=== PATIENT | female | born 1950 | race Caucasian/White ===

== ENCOUNTER 2018-02-13 00:05 | Outpatient (CLI) | payer MEDICARE, BC, SELFPAY ==
--- NOTE | 2018-02-13 14:00 | DI.US_ITS ---
SYMPTOMS/DIAGNOSIS: MULTINODULAR GOITER, E04.2 THYROID ULTRASOUND: The right thyroid lobe measures 5.6 x 3.2 x 2.0 cm. An upper pole cyst measures 9.6 x 9.8 x 8.7 cm. There is a 3.5 x 2.9 x 2.1 cm avascular heterogeneous well-circumscribed ovoid nodule in the mid portion of the right thyroid lobe. The isthmus is unremarkable, measuring 4.4 mm in diameter. The left thyroid lobe measures 5.6 x 1.9 x 2.2 cm. There is a heterogeneous avascular mass with mixed echogenicity measuring 1.4 x 1.4 x 1.3 cm in the upper pole. In addition, in the mid pole, there is a 1.3 x 1.3 x 1.0 cm avascular cystic mass with calcification. In the lower pole, there is a 1.6 x 1.6 x 1.0 cm avascular heterogeneous area of nodularity. SUMMARY: There are findings consistent with a multinodular goiter.
== END 2018-02-13 00:25 ==
PROVIDERS: PCP Family Medicine; Visit Provider Otolaryngology
DX: E04.2 Nontoxic multinodular goiter (principal)
CPT/HCPCS: 76536

== ENCOUNTER 2018-04-23 10:14 | Outpatient (CLI) | payer MEDICARE, SELFPAY ==
[2018-04-23 11:39] LABS: ALT 61 U/L (12-78); AST 43 U/L (15-37); Albumin 3.7 g/dL (3.4-5.0); Alkaline Phosphatase 80 U/L (46-116); Anion Gap 10.4 mmol/L (3-11); BUN 23 mg/dL (7-18); Bilirubin, Total 0.6 mg/dL (0.2-1.0); CO2 26.6 mmol/L (21.0-32.0); CREATININE 1.16 mg/dL (0.55-1.02); Calcium 9.7 mg/dL (8.5-10.1); Chloride 101 mmol/L (98-107); Cholesterol 176 mg/dL (50-200); Estimated GFR 46.89 (mL/min/1.73m2); Glucose 199 mg/dL (70-100); HDL Cholesterol 42 mg/dL (40-60); LDL CHOLESTEROL 111 mg/dL (<100); Potassium 4.1 mmol/L (3.5-5.1); Sodium 138 mmol/L (136-145); Total Protein 7.5 g/dL (6.4-8.2); Triglyceride 166 mg/dL (30-150)
[2018-04-23 11:52] LABS: COMMENT (LAB VIEW ONLY) 72.26 mg/dL; Microalb ug/mg Crea 12.7 ug/mg Cr
== END 2018-04-23 10:34 ==
PROVIDERS: PCP Family Medicine; Visit Provider Family Medicine
DX: E11.65 Type 2 diabetes mellitus with hyperglycemia (principal); I10 Essential (primary) hypertension
CPT/HCPCS: 80053; 80061; 83721; 82043; 82570; 83036

== ENCOUNTER 2018-10-23 13:44 | Outpatient (CLI) | payer MEDICARE, SELFPAY ==
[2018-10-23 14:42] LABS: Hemoglobin A1C 8.6 % (4.5-6.2)
== END 2018-10-23 14:04 ==
PROVIDERS: PCP Family Medicine; Visit Provider Family Medicine
DX: E11.65 Type 2 diabetes mellitus with hyperglycemia (principal); E11.8 Type 2 diabetes mellitus with unspecified complications
CPT/HCPCS: 36415; 83036

== ENCOUNTER 2019-03-02 11:47 | Outpatient (CLI) | payer MEDICARE, SELFPAY ==
[2019-03-02 13:19] LABS: ALT 48 U/L (14-59); AST 39 U/L (15-37); Albumin 3.9 g/dL (3.4-5.0); Alkaline Phosphatase 71 U/L (46-116); Anion Gap 10.9 mmol/L (3-11); BUN 16 mg/dL (7-18); Bilirubin, Total 0.6 mg/dL (0.2-1.0); CO2 28.1 mmol/L (21.0-32.0); CREATININE 0.91 mg/dL (0.55-1.02); Calcium 9.7 mg/dL (8.5-10.1); Chloride 100 mmol/L (98-107); Glucose 186 mg/dL (74-106); Sodium 139 mmol/L (136-145); Total Protein 7.4 g/dL (6.4-8.2)
[2019-03-02 14:03] LABS: Hemoglobin A1C 8.5 % (4.5-6.2)
== END 2019-03-02 12:07 ==
PROVIDERS: PCP Family Medicine; Visit Provider Family Medicine
DX: E11.9 Type 2 diabetes mellitus without complications (principal); I10 Essential (primary) hypertension
CPT/HCPCS: 36415; 80053; 83036

== ENCOUNTER 2019-05-28 13:05 | Outpatient (CLI) | payer MEDICARE, SELFPAY | END 2019-05-28 13:25 | PROVIDERS: PCP Family Medicine; Visit Provider Family Medicine | DX: E11.9 Type 2 diabetes mellitus without complications (principal) | CPT/HCPCS: 36415; 83036 ==

== ENCOUNTER 2020-02-05 09:24 | Outpatient (CLI) | payer MEDICARE, SELFPAY ==
[2020-02-09 23:15] LABS: Patient Race White; SARS-CoV-2 RNA Undetected (Undetected); SARS-CoV-2 Specimen Source Nasal
== END 2020-02-05 09:44 ==
PROVIDERS: PCP Family Medicine; Visit Provider Family Medicine
DX: Z20.828 Contact with and (suspected) exposure to other viral communicable diseases (principal)
CPT/HCPCS: U0003

== ENCOUNTER 2020-04-15 02:57 | Outpatient (CLI) | payer MEDICARE, SELFPAY ==
[2020-04-16 15:49] LABS: COVID-19 RT-PCR Result NEGATIVE (Negative)
== END 2020-04-15 03:17 ==
PROVIDERS: PCP Family Medicine; Visit Provider Family Medicine
DX: Z20.828 Contact with and (suspected) exposure to other viral communicable diseases (principal)
CPT/HCPCS: U0003

== ENCOUNTER 2020-04-29 08:58 | Outpatient (CLI) | payer MEDICARE, SELFPAY ==
[2020-05-01 10:30] LABS: COVID-19 RT-PCR Result NEGATIVE (Negative)
== END 2020-04-29 09:18 ==
PROVIDERS: PCP Family Medicine; Visit Provider Family Medicine
DX: Z20.822 Contact with and (suspected) exposure to COVID-19 (principal)
CPT/HCPCS: U0003

== ENCOUNTER 2020-05-13 01:33 | Outpatient (CLI) | payer MEDICARE, SELFPAY ==
[2020-05-14 14:39] LABS: COVID-19 RT-PCR UVMMC Result Negative (Negative)
== END 2020-05-13 01:34 | disposition home or self-care (01) ==
LOC: LBO 01:33
PROVIDERS: PCP Family Medicine; Visit Provider Family Medicine
DX: Z20.822 Contact with and (suspected) exposure to COVID-19 (principal)
CPT/HCPCS: U0003; U0005

== ENCOUNTER 2020-06-03 02:04 | Outpatient (CLI) | payer MEDICARE, SELFPAY ==
[2020-06-04 15:38] LABS: COVID-19 RT-PCR UVMMC Result Negative (Negative)
== END 2020-06-03 02:05 | disposition home or self-care (01) ==
LOC: LBO 02:04
PROVIDERS: PCP Family Medicine; Visit Provider Family Medicine
DX: Z20.822 Contact with and (suspected) exposure to COVID-19 (principal)
CPT/HCPCS: U0003; U0005

== ENCOUNTER 2020-06-17 02:10 | Outpatient (CLI) | payer MEDICARE, SELFPAY ==
[2020-06-18 18:06] LABS: COVID-19 RT-PCR UVMMC Result Negative (Negative)
== END 2020-06-17 02:11 | disposition home or self-care (01) ==
PROVIDERS: PCP Family Medicine; Visit Provider Family Medicine
DX: Z20.822 Contact with and (suspected) exposure to COVID-19 (principal)
CPT/HCPCS: U0003; U0005

== ENCOUNTER 2020-06-30 11:15 | Outpatient (CLI) | payer MEDICARE, SELFPAY ==
[2020-07-01 16:04] LABS: COVID-19 RT-PCR UVMMC Result Negative (Negative)
== END 2020-06-30 11:16 | disposition home or self-care (01) ==
PROVIDERS: PCP Family Medicine; Visit Provider Family Medicine
DX: Z20.822 Contact with and (suspected) exposure to COVID-19 (principal)
CPT/HCPCS: U0003; U0005

== ENCOUNTER 2020-07-13 10:52 | Outpatient (CLI) | payer MEDICARE, SELFPAY ==
[2020-07-14 15:13] LABS: COVID-19 RT-PCR UVMMC Result Negative (Negative)
== END 2020-07-13 10:53 | disposition home or self-care (01) ==
PROVIDERS: PCP Family Medicine; Visit Provider Family Medicine
DX: Z20.822 Contact with and (suspected) exposure to COVID-19 (principal)
CPT/HCPCS: U0003; U0005

== ENCOUNTER 2020-07-27 02:42 | Outpatient (CLI) | payer MEDICARE, SELFPAY ==
[2020-07-28 11:52] LABS: COVID-19 RT-PCR UVMMC Result Negative (Negative)
== END 2020-07-27 02:43 | disposition home or self-care (01) ==
LOC: LBO 02:43
PROVIDERS: PCP Family Medicine; Visit Provider Family Medicine
DX: Z20.822 Contact with and (suspected) exposure to COVID-19 (principal)
CPT/HCPCS: U0003; U0005

== ENCOUNTER 2020-08-10 10:59 | Outpatient (CLI) | payer MEDICARE, SELFPAY ==
[2020-08-11 11:45] LABS: COVID-19 RT-PCR UVMMC Result Negative (Negative)
== END 2020-08-10 11:00 | disposition home or self-care (01) ==
PROVIDERS: PCP Family Medicine; Visit Provider Family Medicine
DX: Z20.822 Contact with and (suspected) exposure to COVID-19 (principal)
CPT/HCPCS: U0003; U0005

== ENCOUNTER 2020-09-06 14:30 | Outpatient (REF) | payer MEDICARE, SELFPAY | END 2020-09-06 14:31 | disposition home or self-care (01) | LOC: LBN 14:30 | PROVIDERS: PCP Family Medicine; Visit Provider Family Medicine | DX: E11.65 Type 2 diabetes mellitus with hyperglycemia (principal); I10 Essential (primary) hypertension; E78.5 Hyperlipidemia, unspecified | CPT/HCPCS: 82043; 82570 ==

== ENCOUNTER 2020-12-19 02:25 | Outpatient (CLI) | payer MEDICARE, SELFPAY ==
--- NOTE | 2020-12-19 09:34 | DI.MAMMO_ITS ---
Exam(s) MAMMO SCREENING EXAM: MAMMO SCREENING CLINICAL HISTORY: screening, Z12.39 TECHNIQUE: Mammograms were interpreted according to the usual protocol including computer analysis w [employer] CAD system, tomosynthesis and C-view imaging. COMPARISON: 2011 through 2017 FINDINGS: The breasts are composed of scattered fibroglandular densities, Breast Density category B. No suspicious masses or suspicious microcalcifications are seen. No skin thickening or abnormal axillary lymph nodes are seen. There has been no significant change from prior exams. IMPRESSION: BI-RADS Category 1, Negative mammogram Yearly screening mammography is recommended. Breast Density - Category B, scattered fibroglandular densities. A negative radiographic report should not delay biopsy if a dominant or clinically suspicious mass is present. Up to ten percent of cancers are not identified on mammography. A negative report may reinforce clinical impression. Adenosis and dense breasts may obscure an underlying neoplasm. False positive reports average 6 to 10%. Patient will receive a letter notifying them of these results.
== END 2020-12-19 02:45 ==
PROVIDERS: PCP Family Medicine; Visit Provider Family Medicine
DX: Z12.31 Encounter for screening mammogram for malignant neoplasm of breast (principal)
CPT/HCPCS: 77063; 77067

== ENCOUNTER 2021-02-16 18:51 | Outpatient (REF) | payer MEDICARE, SELFPAY ==
[2021-02-18 18:23] LABS: COVID-19 RT-PCR UVMMC Result Negative (Negative)
== END 2021-02-16 18:52 | disposition home or self-care (01) ==
LOC: LBN 18:51
PROVIDERS: PCP Family Medicine; Visit Provider Nurse Practitioner Family
DX: Z20.822 Contact with and (suspected) exposure to COVID-19 (principal); R05.8 Other specified cough
CPT/HCPCS: U0003

== ENCOUNTER 2021-10-26 01:07 | Outpatient (CLI) | payer MEDICARE, SELFPAY ==
[2021-10-26 12:51] LABS: ALT 40 U/L (14-59); AST 37 U/L (15-37); Albumin 3.7 g/dL (3.4-5.0); Alkaline Phosphatase 67 U/L (46-116); Anion Gap 9.3 mmol/L (3-11); BUN 26 mg/dL (7-18); Bilirubin, Total 0.6 mg/dL (0.2-1.0); CO2 29.7 mmol/L (21.0-32.0); CREATININE 1.1 mg/dL (0.55-1.02); Calcium 9.6 mg/dL (8.5-10.1); Calculated LDL 82 mg/dL (<100); Chloride 101 mmol/L (98-107); Cholesterol 144 mg/dL (<200); Estimated GFR 49.39 (mL/min/1.73m2); Glucose 163 mg/dL (74-106); HDL Cholesterol 40 mg/dL (40-60); Potassium 4.3 mmol/L (3.5-5.1); Sodium 140 mmol/L (136-145); Total Protein 7.5 g/dL (6.4-8.2); Triglyceride 114 mg/dL (<150)
[2021-10-26 13:02] LABS: COMMENT (LAB VIEW ONLY) 105.96 mg/dL; Microalb ug/mg Crea 12.7 ug/mg Cr
== END 2021-10-26 01:08 | disposition home or self-care (01) ==
LOC: LOS 01:07
PROVIDERS: PCP Family Medicine; Visit Provider Family Medicine
DX: E11.65 Type 2 diabetes mellitus with hyperglycemia (principal); E78.5 Hyperlipidemia, unspecified
CPT/HCPCS: 36415; 80053; 80061; 82043; 82570

== ENCOUNTER → 2021-12-22 00:56 | Outpatient (CLI) | payer MEDICARE, SELFPAY ==
--- NOTE | 2021-12-22 06:30 | DI.RAD_ITS ---
Exam(s) XR HIP LT COMPLETE AP PELVIS EXAM: XR HIP LT COMPLETE AP PELVIS CLINICAL HISTORY: left hip pain,m25.552. TECHNIQUE: 2D digital imaging was performed. FINDINGS: Two views No evidence of pelvic nor hip fracture. 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 This appears to have progre ssed since 2015 images. Mild degenerative changes in the right hip. No osseous lesions. IMPRESSION: Progression of left hip degenerative changes when compared to 2015. DATA REPOSITORY: RADIATION DOSE DELIVERED:
--- NOTE | 2021-12-22 06:30 | DI.RAD_ITS ---
Exam(s) XR LUMBAR SPINE COMPLETE EXAM: XR LUMBAR SPINE COMPLETE CLINICAL HISTORY: Low back and lt hip pain, m54.5. TECHNIQUE: 2D digital imaging was performed. COMPARISON: CR LUMBAR SPINE COMPLETE from 02/03/2015 FINDINGS: Five views No evidence of fracture. Mild degenerative anterolisthesis L5 upon S1. There is moderate disc space narrowing at L3-4 level and L4-5 level. Multilevel facet joint degenera tive changes. Suspect element central canal stenosis here. No osseous lesions IMPRESSION: As above. Probable element of central spinal canal stenosis. DATA REPOSITORY: RADIATION DOSE DELIVERED:
== END ==
PROVIDERS: PCP Family Medicine; Visit Provider Family Medicine
DX: E11.65 Type 2 diabetes mellitus with hyperglycemia (principal); M16.12 Unilateral primary osteoarthritis, left hip; M43.17 Spondylolisthesis, lumbosacral region
CPT/HCPCS: 72110; 73502

== ENCOUNTER 2022-03-27 02:11 | Outpatient (CLI) | payer MEDICARE, SELFPAY ==
[2022-03-27 13:05] LABS: ALT 31 U/L (14-59); AST 40 U/L (15-37); Albumin 3.9 g/dL (3.4-5.0); Alkaline Phosphatase 76 U/L (46-116); Anion Gap 6.5 mmol/L (3-11); BUN 20 mg/dL (7-18); Bilirubin, Total 0.6 mg/dL (0.2-1.0); CO2 31.5 mmol/L (21.0-32.0); CREATININE 0.9 mg/dL (0.55-1.02); Calcium 9.4 mg/dL (8.5-10.1); Calculated LDL 83 mg/dL (<100); Chloride 100 mmol/L (98-107); Cholesterol 158 mg/dL (<200); Glucose 169 mg/dL (74-106); HDL Cholesterol 43 mg/dL (40-60); Potassium 4.2 mmol/L (3.5-5.1); Sodium 138 mmol/L (136-145); Total Protein 7.7 g/dL (6.4-8.2); Triglyceride 164 mg/dL (<150)
[2022-03-27 13:10] LABS: COMMENT (LAB VIEW ONLY) 97.58 mg/dL; Microalb ug/mg Crea 42.7 ug/mg Cr
[2022-03-27 13:17] LABS: Hemoglobin A1C 7.6 % (<5.7)
== END 2022-03-27 02:12 | disposition home or self-care (01) ==
LOC: LOS 02:11
PROVIDERS: PCP Family Medicine; Visit Provider Family Medicine
DX: I10 Essential (primary) hypertension (principal); E11.65 Type 2 diabetes mellitus with hyperglycemia
CPT/HCPCS: 80053; 80061; 82043; 82570; 83036

== ENCOUNTER 2022-08-30 02:05 | Outpatient (CLI) | payer MEDICARE, SELFPAY ==
--- NOTE | 2022-08-30 08:45 | DI.DEXA_ITS ---
Exam(s) XR DEXA BONE DENSITY W/WO ORI EXAM: XR DEXA BONE DENSITY W/WO ORI CLINICAL HISTORY: OSTEOPOROSIS, M81.0 TECHNIQUE: COMPARISON: No exams were available for comparison FINDINGS: Lateral Spine Image: Unremarkable. No compression deformities identified. Left hip: Total T-Score: 2.8 Total Z-Score: 4.3 T- and Z-scores: Within normal limits. Lumbar Spine: Total T-Score: 3.0 Total Z-Score: 5.1 T- and Z-scores: Within normal limits. IMPRESSION: No evidence of osteoporosis.
--- NOTE | 2022-08-30 08:45 | DI.MAMMO_ITS ---
Exam(s) MAMMO SCREENING EXAM: MAMMO SCREENING CLINICAL HISTORY: screening,Z12.39 TECHNIQUE: Bilateral full field digital CC and MLO mammographic images were obtained with 3D tomosyn thesis and utilizing computer aided detection (CAD). COMPARISON: Available for comparison. FINDINGS: Masses/Architectural Distortion: None seen. Microcalcifications: No suspicious pleomorphic-type are seen. Skin Thickening/Nipple Retraction: None. IMPRESSION: 1. No significant interval change with no specific features of malignancy noted. 2. Unless there is more urgent need, screening mammography is recommended, as per [employer] guidelines. BI-RADS Category 1 - Negative Breast Density - Category B - Scattered areas of fibroglandular density Breast density category C or D implies that the patient has dense breast tissue. Dense breast tissue is very common and is not abnormal but dense breast tissue can make it harder to find cancer on a ma mmogram. Also, dense breast tissue may increase their breast cancer risk. This information about the result of the mammogram report was provided to the patient to raise their awareness. Use this report when you speak with the patient about their risks for breast cancer, which includes their family hist ory. At that time, you may recommend for more screening tests (Ultrasound or MRI) as they might be us eful based on their risk. A negative radiographic report should not delay biopsy if a dominant or clinically suspicious mass is present. Up to ten percent of cancers are not identified on mammography. A negative report may reinforce clinical impression. Adenosis and dense breasts may obscure an underlying neoplasm. False positive reports average 6 to 10%. Patient will receive a letter notifying them of these results.
== END 2022-08-30 02:25 ==
PROVIDERS: PCP Family Medicine; Visit Provider Family Medicine
DX: Z12.31 Encounter for screening mammogram for malignant neoplasm of breast (principal); M81.0 Age-related osteoporosis without current pathological fracture
CPT/HCPCS: 77063; 77067; 77080

== ENCOUNTER 2023-04-25 08:45 | Outpatient (CLI) | payer MEDICARE, SELFPAY ==
[2023-04-25 08:44] LABS: Hemoglobin A1C 7.6 % (<5.7)
[2023-04-25 09:31] LABS: ALT 42 U/L (14-59); AST 33 U/L (15-37); Albumin 3.7 g/dL (3.4-5.0); Alkaline Phosphatase 68 U/L (46-116); Anion Gap 6.9 mmol/L (3-11); BUN 14 mg/dL (7-18); Bilirubin, Total 0.8 mg/dL (0.2-1.0); CO2 30.1 mmol/L (21.0-32.0); CREATININE 0.9 mg/dL (0.55-1.02); Calcium 9.5 mg/dL (8.5-10.1); Calculated LDL 90 mg/dL (<100); Chloride 102 mmol/L (98-107); Cholesterol 163 mg/dL (<200); Estimated GFR 68.77 (mL/min/1.73m2); Glucose 123 mg/dL (74-106); HDL Cholesterol 45 mg/dL (40-60); Potassium 3.7 mmol/L (3.5-5.1); Sodium 139 mmol/L (136-145); Total Protein 7.9 g/dL (6.4-8.2); Triglyceride 141 mg/dL (<150)
== END 2023-04-25 08:46 | disposition home or self-care (01) ==
LOC: LBO 08:46
PROVIDERS: PCP Family Medicine; Visit Provider Family Medicine
DX: I10 Essential (primary) hypertension (principal); E11.9 Type 2 diabetes mellitus without complications
CPT/HCPCS: 36415; 80053; 80061; 83036

== ENCOUNTER 2023-11-14 22:11 | Outpatient (REF) | payer MEDICARE, SELFPAY ==
[2023-11-14 22:09] LABS: COMMENT (LAB VIEW ONLY) 102.55 mg/dL; Microalb ug/mg Crea 50.1 ug/mg Cr
== END 2023-11-14 22:12 | disposition home or self-care (01) ==
LOC: LBN 22:11
PROVIDERS: PCP Family Medicine; Visit Provider Family Medicine
DX: E11.9 Type 2 diabetes mellitus without complications (principal); E11.65 Type 2 diabetes mellitus with hyperglycemia; I10 Essential (primary) hypertension
CPT/HCPCS: 82043; 82570

== ENCOUNTER 2024-08-03 00:43 | Outpatient (CLI) | payer MEDICARE, SELFPAY ==
[2024-08-03 12:40] LABS: ALT 45 U/L (14-59); AST 37 U/L (15-37); Albumin 3.7 g/dL (3.4-5.0); Alkaline Phosphatase 79 U/L (46-116); Anion Gap 10.8 mmol/L (3-11); BUN 23 mg/dL (7-18); Bilirubin, Total 0.6 mg/dL (0.2-1.0); CO2 27.2 mmol/L (21.0-32.0); Calcium 9.3 mg/dL (8.5-10.1); Calculated LDL 93 mg/dL (<100); Chloride 104 mmol/L (98-107); Cholesterol 169 mg/dL (<200); Estimated GFR 60.23 (mL/min/1.73m2); Glucose 229 mg/dL (74-106); HDL Cholesterol 48 mg/dL (>or=50); Potassium 4.4 mmol/L (3.5-5.1); Sodium 142 mmol/L (136-145); Total Protein 7.6 g/dL (6.4-8.2); Triglyceride 143 mg/dL (<150)
== END 2024-08-03 00:44 | disposition home or self-care (01) ==
LOC: LOS 00:43
PROVIDERS: PCP Family Medicine; Visit Provider Family Medicine
DX: I10 Essential (primary) hypertension (principal)
CPT/HCPCS: 36415; 80053; 80061

== ENCOUNTER 2024-09-01 01:35 | Outpatient (CLI) | payer MEDICARE, SELFPAY ==
--- NOTE | 2024-09-01 07:15 | DI.MAMMO_ITS ---
Exam(s) MAMMO SCREENING EXAM: MAMMO SCREENING CLINICAL HISTORY: screening,z12.39. TECHNIQUE: Bilateral full field digital CC and MLO mammographic images were obtained with 3D tomosyn thesis and utilizing computer aided detection (CAD). COMPARISON: Prior mammograms were reviewed. FINDINGS: There has been no significant change in the appearance and distribution of the fibroglandular tissue. There are no new spiculated masses nor malignant appearing microcalcification groups. There is no significant architectural distortion nor skin thickening-retraction. IMPRESSION: No radiographic evidence of malignancy. BI-RADS Category 1 - Negative Breast Density - Category B - There are scattered areas of fibroglandular density. Breast density Category C or D implies that the patient has dense breast tissue. Dense breast tissue can make it harder to find cancer on a mammogram. Dense breast tissue is also associated with an incr eased risk of breast cancer. This information about the result of the mammogram report was provided to the patient to raise their awareness. Use this report when you speak with the patient about their risks for breast cancer, which includes their family history. At that time, you may recommend additional screening tests (Ultrasoun d or MRI) as these tests may add significant information. A negative radiographic report should not delay biopsy if a dominant or clinically suspicious mass is present. Up to ten percent of cancers are not identified on mammography. A negative report may reinforce clinical impression. Adenosis and dense breasts may obscure an underlying neoplasm. False positive reports average 6 to 10%. Patient will receive a letter notifying them of these results.
== END 2024-09-01 01:55 ==
LOC: DI 01:35
PROVIDERS: PCP Family Medicine; Visit Provider Family Medicine
DX: Z12.31 Encounter for screening mammogram for malignant neoplasm of breast (principal); R92.323 Mammographic fibroglandular density, bilateral breasts
CPT/HCPCS: 77063; 77067